=== PATIENT | female | born 2000 | race Caucasian/White ===

== ENCOUNTER 2025-07-10 17:07 | Emergency (ER) | payer BC, SELFPAY ==
[2025-07-10 17:08] VITALS: BP 135/69; PULSE 64; RESP 15; TEMP 36.4; O2SAT 100
--- NOTE | 2025-07-10 17:17 | ECG_ITS ---
Test Date: 2025-07-10 17:21:04 Measurements Intervals [place] Rate: 67 P: 45 DC: 146 QRS: 43 QRSD: 93 T: 11 QT: 390 QTc: 412 Interpretive Statements SINUS RHYTHM WITH SINUS ARRHYTHMIA BORDERLINE T WAVE ABNORMALITY- INFERIOR LEADS BASELINE ARTIFACT- I, II, III, AVR, AVL, AVF, V4-V6 BORDERLINE ECG No previous ECG available for comparison Electronically Signed On 07-11-2025 09:29:38 [employer] by Gerald Reynolds D.O.
[2025-07-10 17:28] VITALS: BP 130/91; PULSE 71; RESP 18; O2SAT 99
[2025-07-10 17:29] VITALS: O2SAT 99
--- NOTE | 2025-07-10 18:41 | ED.ALLEREA ---
HPI - Allergic Reaction General Chief complaint: Allergic Reaction Stated complaint: allergic reaction; face swollen Time Seen by Provider: 07/10/25 18:12 History of Present Illness HPI narrative: Patient is a 24 year old female who presents to the ER after experiencing an allergic reaction while eating pretzels. She reports she has never had an allergic reaction before. Patient reports after her 5th pretzel she started experiencing face swelling, nausea, difficulty swallowing, mild shortness of breath, and throat tingling. She reports she took a Benadryl at home and then her brought her here to the ER. At time of examination patient reports her symptoms have mostly resolved although she still feels some mild swelling in her left face. Patient denies any other medical history related to this visit. Related Data Allergies Allergy/AdvReac Type Severity Reaction Status Date / Time No Known Allergies Allergy Verified 07/10/25 17:28 Review of Systems Review of Systems: All systems reviewed & are unremarkable except as noted in HPI and below Exam Narrative: GENERAL: Well appearing, well-nourished, non-toxic, in no acute distress. HEAD: Normocephalic, atraumatic. No uvula deviation or tongue swelling. NECK: Supple. No adenopathy, no masses. RESPIRATORY: Airway patent, respirations nonlabored. Clear to auscultation bilaterally, no rales, rhonchi, wheezing. CARDIOVASCULAR: Regular rate and rhythm without murmurs, rubs, or gallops. Peripheral pulses 2+ and equal bilaterally. ABDOMINAL: Soft, nontender, nondistended, no hepatosplenomegaly. Normoactive BS. MUSCULOSKELETAL: Moves all extremities. Strength/ROM intact without gross deformities. SKIN: Warm, dry, normal color. No rashes. NEURO: A&O X3. Speech clear. Cranial nerves II-XII intact. No ataxic movements. PSYCHIATRIC: Appropriate mood and affect. Normal interaction. Course Vital Signs Vital signs: Vital Signs Temperature 36.4 C 07/10/25 17:08 Pulse Rate 64 07/10/25 17:08 Respiratory Rate 15 07/10/25 17:08 Blood Pressure 135/69 07/10/25 17:08 Pulse Oximetry 100 07/10/25 17:08 Oxygen Delivery Room Air 07/10/25 17:08 Temperature 36.4 C 07/10/25 17:08 Pulse Rate 61 07/10/25 18:56 Respiratory Rate 17 07/10/25 18:56 Blood Pressure 110/68 07/10/25 18:56 Pulse Oximetry 100 07/10/25 18:56 Oxygen Delivery Room Air 07/10/25 17:29 MDM MDM Narrative Medical decision making narrative: Patient is a 24 year old female who presents to the ER after experiencing an allergic reaction while eating pretzels. She reports she has never had an allergic reaction before. Patient reports after her 5th pretzel she started experiencing face swelling, nausea, difficulty swallowing, mild shortness of breath, and throat tingling. She reports she took a Benadryl at home and then her brought her here to the ER. At time of examination patient reports her symptoms have mostly resolved although she still feels some mild swelling in her left face. Patient denies any other medical history related to this visit. Patient Education/Shared MDM: Patient endorses improvement of symptoms following medication administration. She continues to deny any worsening or return of symptoms during her 2 1/2 hour stay in the ER. Patient strongly advised to follow-up with her PCP as soon as possible for further evaluation. She will be discharged home with a prescription for an epi pen. Strict return precautions provided. Patient verbalized understanding and is in agreement with plan. Vital signs stable at time of discharge. All questions answered. Differential Diagnosis Differential Diagnosis: Allergic reaction, angioedema, shortness of breath, uvula deviation Discharge Plan Discharge Clinical Impression: Allergic reaction Patient Disposition: Home Condition: Stable Instructions: Antibiotic Form, Food Allergy (ED) Additional Instructions: Please return to the ER with any worsening symptoms. Follow-up with primary care provider as soon as possible for further evaluation. Take all medications as prescribed, including regularly scheduled medications. Refrain from further consumption of [employer] pretzels. If you start to experience shortness of breath, difficulty swallowing your secretions, neck swelling, or airway swelling, please administer your epi pen. Patient Language: Faroese Prescriptions: New epinephrine [EpiPen 2-Cliff] 0.3 mg/0.3 mL auto-injector 0.3 mg IM Q5-15M PRN (Reason: anaphylaxis) Qty: 2 0RF Rx Instructions: do not exceed 3 doses per episode Follow-up/Referrals: PHYSICIAN NOT ON STAFF,NONSTAFF [Primary Care Provider] Time of Disposition: 19:48
[2025-07-10 18:56] VITALS: BP 110/68; PULSE 61; RESP 17; O2SAT 100
[2025-07-10] MEDS: diphenhydrAMINE HCl CAP 25 MG CAPSULE PO (18:56)
[2025-07-10] MEDS: FAMOTIDINE 20 MG TABLET 40 MG PO (18:56)
--- NOTE | 2025-07-10 19:13 | PC.NURSE ---
Report received from KASIA Mosquera. Assumed care of patient at this time.
[2025-07-10 19:47] VITALS: BP 125/84; PULSE 60; RESP 16; O2SAT 100
== END 2025-07-10 19:57 | disposition home or self-care (01) ==
PROVIDERS: Emergency Provider Registered Nurse
DX: T78.40XA Allergy, unspecified, initial encounter (principal); R94.31 Abnormal electrocardiogram [ECG] [EKG]
CPT/HCPCS: 93005; 99283; A9270; J7512